=== PATIENT | female | born 1945 | race African-American/Black ===

== ENCOUNTER 2024-06-26 18:14 | Emergency (ER) | payer OTHER, MEDICAID ==
[~2024-06-26] VITALS: Ht 175.3 cm; Wt 73.0 kg
[2024-06-26 18:20] VITALS: O2SAT 99
[2024-06-26 18:54] LABS: BASOPHILS % 0.4 % (0.0-2.0); EOSINOPHILS % 3.7 % (0.0-5.0); HEMATOCRIT. 31.5 % (36.0-48.0); HEMOGLOBIN. 10.4 g/dL (12.0-16.0); LYMPHOCYTES % 22.4 % (20.0-50.0); MEAN CORPUSCULAR HEMOGLOBIN 28.8 pg (28.0-32.0); MEAN CORPUSCULAR HGB CONC 32.9 g/dL (31.0-37.0); MEAN CORPUSCULAR VOLUME 87.5 fL (81.0-99.0); MEAN PLATELET VOLUME 8.2 fl (7.4-10.4); NEUTROPHILS % 66.5 % (40.0-76.0); PLATELET 254 x1000/uL (130-400); RED BLOOD CELL COUNT 3.61 mill/uL (4.2-5.4); RED CELL DISTRIBUTION WIDTH 14.6 % (11.6-14.6); WHITE BLOOD COUNT 5.9 x1000/uL (4.5-11.0)
[2024-06-26 19:04] LABS: CARBON DIOXIDE 29 mEq/L (21-32); CHLORIDE 107 mEq/L (98-107); SODIUM 142 mEq/L (136-145)
[2024-06-26 19:05] LABS: CALCIUM 9.6 mg/dL (8.7-10.4)
[2024-06-26 19:09] LABS: CREATININE 1.6 mg/dL (0.6-1.0)
[2024-06-26 19:10] LABS: GLUCOSE 88 mg/dL (70-105); UREA NITROGEN BLOOD 33 mg/dL (9-23)
[2024-06-26 19:11] LABS: ALANINE AMINOTRANSFERASE 17 IU/L (10-49); ALBUMIN 4.3 g/dL (3.2-4.8); ASPARTATE AMINOTRANSFERASE 23 IU/L (<34)
[2024-06-26 19:12] LABS: BILIRUBIN DIRECT 0.3 mg/dL (<=3.0); BILIRUBIN TOTAL 0.9 mg/dL (0.1-1.0); PROTEIN TOTAL 7.3 g/dL (6.0-8.3)
[2024-06-26 19:21] LABS: D-DIMER 0.81 mg/L FEU (<0.50); INR 1.1; PROTHROMBIN TIME 11.7 sec (9.6-11.0)
[2024-06-26 19:46] LABS: ETHANOL BLOOD < 10 mg/dL (<10); TROPONIN I HIGH SENSITIVITY < 4 ng/L (3.0-34)
[2024-06-26] MEDS ORDERED: CLONIDINE 0.1MG TABLET PO PRN (22:15)
[2024-06-26] MEDS ORDERED: GUAIFENESIN 200MG/10ML SUGAR FREE UDC PO PRN (22:15)
[2024-06-26] MEDS ORDERED: ACETAMINOPHEN 325MG TABLET PO PRN ×2 (22:15)
[2024-06-26] MEDS ORDERED: MAGNESIUM/ALUMINUM HYDROXIDE/SIMETHICONE 30ML UDC PO PRN (22:15)
[2024-06-26] MEDS ORDERED: DOCUSATE SODIUM 100MG CAPSULE PO PRN (22:15)
[2024-06-26] MEDS ORDERED: IPRATROPIUM/ALBUTEROL 0.5-3(2.5)MG/3ML NEB HHN PRN (22:15)
[2024-06-26] MEDS ORDERED: NA PHOS,M-B/NA PHOS,DI-BA ENEMA 118ML PR PRN (22:15)
[2024-06-26] MEDS ORDERED: ONDANSETRON HCL 4MG/2ML INJ IV PRN (22:15)
[2024-06-26] MEDS ORDERED: HYDROCODONE/ACETAMINOPHEN 5/325MG TABLET PO PRN (22:15)
[2024-06-26] MEDS: SODIUM CHLORIDE 0.9% 500 ML IV NR (22:43)
[2024-06-26] MEDS: SODIUM CHLORIDE 0.9% 1,000 ML IV SCH (23:17)
[2024-06-26 23:18] VITALS: BP 126/40; PULSE 75; RESP 13; TEMP 36.89184; O2SAT 98
[2024-06-26 23:46] LABS: IRON 60 ug/dL (50-170)
[2024-06-26 23:48] LABS: TOTAL IRON BINDING CAPACITY 81 ug/dl (250-425)
[2024-06-26] MEDS ORDERED: IOHEXOL-350 100 ML BOTTLE ONE (23:53)
[2024-06-26 23:58] LABS: FERRITIN 208 ng/mL (10-291); FOLIC ACID (FOLATE) SERUM 10.02 ng/mL (>5.38)
[2024-06-26 23:59] LABS: VITAMIN B12 SERUM 899 pg/mL (211-911)
== END 2024-06-27 00:11 | disposition short-term general hospital (02) ==
LOC: ER 18:14 → EDBEDREQ 21:51 → EDBEDREQTM 21:51 → ER 06-27 00:11
DX: R20.0 Anesthesia of skin (principal); F03.90 Unspecified dementia, unspecified severity, without behavioral disturbance, psychotic disturbance, mood disturbance, and anxiety; I10 Essential (primary) hypertension; R27.0 Ataxia, unspecified; E78.5 Hyperlipidemia, unspecified; Z88.8 Allergy status to other drugs, medicaments and biological substances
CPT/HCPCS: 80076; 80048; 80320; 82607; 82728; 82746; 82962; 83036; 83880; 83540; 83550; 83690; 85025; 85044; 85379; 85610; 87040; 84484; 36415; 71045; 70496; 70498; 70450; 93970; 93005; 99291; Q9967; G0480